=== PATIENT | male | born 1970 | race Caucasian/White ===

== ENCOUNTER 2022-12-26 08:58 | Day surgery (SDC) | payer OTHER ==
[~2022-12-26] VITALS: Ht 180.3 cm; Wt 82.2 kg
[2022-12-26] MEDS ORDERED: Cyclobenzaprine5 MG PO (09:19)
--- NOTE | 2022-12-26 10:04 | NUR ---
Ambulatory in Day Surgery WITH STEADY GAIT. Surgical site prepped with 2% Chlorhexidine cloth wipe. History, Chart, Medications and Allergies reviewed before start of procedure. Lungs clear T/O to Auscultation. Patient confirms NPO status and agrees with scheduled surgery. Pre-Op teaching done. Pt verbalizes understanding. Patient States Post-Procedure ride home has been arranged WITH OR FATHER.
--- NOTE | 2022-12-26 13:20 | NUR ---
PT GIVEN PO PAIN MEDICATIONS PER MD ORDERS.
--- NOTE | 2022-12-26 13:27 | NUR ---
REVIEWED DISCHARGE INSTRUCTIONS WITH PATIENT. PT IV DC'D INTACT. PT ABLE TO VOID PRIOR TO DISCHARGE. ABD INCISION WITH DERMABOND, CLEAN DRY AND INTACT. Patient States Post-Procedure ride home has been arranged. Discharged via wheelchair to private car for ride home.
== END 2022-12-26 22:46 | disposition home or self-care (01) ==
LOC: ORSCMMR 08:58 → ORD 10:30 → ORSCMMR 10:30
DX: K40.90 Unilateral inguinal hernia, without obstruction or gangrene, not specified as recurrent (principal)
CPT/HCPCS: 49650; S2900; A9270; C1781; J0690; J1100; J1885; J2250; J2370; J2405; J2704; J2795; J3010; J7120